=== PATIENT | female | born 1990 | race Caucasian/White ===

== ENCOUNTER 2019-12-27 08:28 | Emergency (ER) | payer OTHER ==
[~2019-12-27] VITALS: Ht 170.2 cm; Wt 97.5 kg
[2019-12-27 08:32] VITALS: BP 130/72
--- NOTE | 2019-12-27 08:33 | NUR ---
29 Y/O FEMALE BIBA BLS C/O DRY COUGH, SOB, AND NAUSEA SINCE YESTERDAY. RR EVEN AND UNLABORED, NO ACCESSORY MUSCLE USE. DENIES PAIN. DENIES V/D. ABD SOFT, ROUND, NONTENDER. PT STATES HER BOYFRIEND IS HOME SICK, AND SHE IS WORRIED SHE HAS COVID-19. CALLED EMS FROM BUS STOP. VSS MEDHX: DENIES ALLERGIES: KARINAA
--- NOTE | 2019-12-27 09:01 | NUR ---
DR AYOUB AT BEDSIDE EXAMINING PT
--- NOTE | 2019-12-27 09:19 | NUR ---
PT AMBULATED TO RESTROOM FOR COLLECTION OF URINE
[2019-12-27 09:44] VITALS: BP 127/77
== END 2019-12-27 09:45 | disposition home or self-care (01) ==
LOC: MED 08:28
DX: N93.0 Postcoital and contact bleeding (principal); R06.02 Shortness of breath
CPT/HCPCS: 81002; 81025; 99283